=== PATIENT | male | born 1980 | race Caucasian/White ===

== ENCOUNTER 2017-08-08 05:19 | Emergency (ER) | payer BC, OTHER ==
[~2017-08-08] VITALS: Ht 175.3 cm; Wt 107.4 kg
[~2017-08-08 05:19] MED LIST: CRS5 PO; ESCI1TAB10 PO; HYDR25TA5 PO; IBUP-103 PO; LSN20 PO
[2017-08-08 05:23] VITALS: TEMP 37; Ht 175.3 cm; Wt 107.4 kg
[2017-08-08] MEDS ORDERED: OXYCODONE HCL IR 5 MG TAB (IMMEDIATE RELEASE) PO STA (06:16)
[2017-08-08] MEDS ORDERED: OXYC1TAB3 PO (06:23)
[2017-08-08] MEDS ORDERED: INDO-22 PO (06:23)
--- NOTE | 2017-08-08 06:23 | EMERGENCY ROOM VISIT NOTE ---
History Report prepared by Minaibbria: Patric Roy Under the Supervision of: Dr. Juan Harrington M.D. First contact with patient: 05:26 Chief Complaint: ANKLE PAIN Stated Complaint: SEVERE PAIN IN LEFT ANKLE,POSSIBLE SWELLING History of Present Illness The patient is a 36 year old male who presents to the Emergency Room with complaints of constant left ankle pain beginning two days ago. He feels that his left ankle might be swollen as well. He states that his pain began after he was sitting on hit foot, and it had fallen asleep. 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 He denies any shortness of breath, fevers, or chills. Source of History: patient Onset: Two days ago Position: ankle (left) Quality: other (pain and swelling) Timing: constant Associated Symptoms: No fevers, No chills Review of Systems See HPI for pertinent positives & negatives. A total of 6 systems reviewed and were otherwise negative. Past Medical & Surgical Medical Problems: (1) H/O Meckel's diverticulum (2) HLD (hyperlipidemia) (3) HTN (hypertension) (4) Obesity (5) Syncope Surgical Problems: (1) H/O hernia repair (2) S/P appendectomy (3) S/P tonsillectomy Family History Patient reports no known family medical history. Social History Smoking Status: Current Every Day Smoker Marital Status: Housing Status: lives with significant other Current/Historical Medications Scheduled Escitalopram Oxalate (Lexapro), 20 MG PO QAM Hydrochlorothiazide (Hydrochlorothiazide), 25 MG PO QAM Indomethacin (Indocin), 25-50 MG PO TID Lisinopril (Lisinopril), 20 MG PO QAM Scheduled PRN Oxycodone Immediate Rel Tab (Roxicodone Ir), 1-2 TAB PO Q4H PRN for Severe Pain Trazodone Hcl (Trazodone), 50 MG PO HS PRN for Sleep Allergies Coded Allergies: Amoxicillin (Verified Allergy, Unknown, unknown, 08/08/17) Erythromycin (Verified Allergy, Unknown, VOMITING, 08/08/17) Penicillins (Verified Allergy, Unknown, HIVES, 08/08/17) Physical Exam Vital Signs Date Time Temp Pulse Resp B/P (MAP) Pulse Ox O2 Delivery O2 Flow Rate FiO2 08/08/17 05:23 37.0 119 18 131/77 95 Room Air Physical Exam GENERAL: Patient is uncomfortable appearing and in no acute distress. HEENT: No acute trauma, normocephalic atraumatic, mucous membranes moist, no nasal congestion, no scleral icterus. NECK: No stridor, no adenopathy, no meningismus, trachea is midline. HEART: Regular rate and rhythm. No murmurs, rubs, gallops appreciated. EXTREMITIES: Tenderness with palpation of the anterior left ankle over the joint space. No significant swelling or erythema. Pain with active ROM of the left ankle. NEUROLOGIC: Alert and oriented, no acute motor or sensory deficits, no focal weakness, cranial nerves grossly intact. SKIN: No rash, no jaundice, no diaphoresis. Medical Decision & Procedures ER Provider Diagnostic Interpretation: Three View Left Ankle X-ray interpreted by me: slight ankle joint effusion. No fracture or dislocation. Medications Administered Medications (Trade) Dose Ordered Sig/Tayo Route Start Time Stop Time Status Last Admin Dose Admin Oxycodone HCl (Roxicodone Immediate Rel Tab) 10 mg NOW STAT PO 08/08/17 06:16 08/08/17 06:19 DC 08/08/17 06:30 10 MG Indomethacin (Indocin Cap) 50 mg NOW ONCE PO 08/08/17 06:30 08/08/17 06:31 DC 08/08/17 06:30 50 MG ED Course 0527: The patient was evaluated in room B11B. A complete history and physical exam was performed. 0615: Reevaluated the patient. Discussed results and discharge instructions: he verbalized understanding and agreement. The patient is ready for discharge. Medical Decision Differential: Fracture, Dislocation, Cellulitis, Septic Joint, Ligamentous Injury, Effusion, DVT, amongst other pathologies entertained. 36 yr old male arrives with left ankle pain without injury. TTP over joint without significant swelling, erythema, nor increased warmth. N/V intact. History of gout on other side which responded to indomethacin which seems reasonable to treat this as imaging without fracture. Will add on Oxy IR for further symptom relief and reviewed symptoms requiring RTED, specifically going over findings that would suggest septic joint. [place] Drug Monitoring Program Search Results: patient reviewed within database, no issues identified, see additional documentation Drug Monitoring Findings: One narcotic prescription several months ago. Medication Reconcilliation Current Medication List: was personally reviewed by me Blood Pressure Screening Patient's blood pressure: Elevated blood pressure Blood pressure disposition: Elevated BP felt to be situational Impression Primary Impression: Acute gout of left ankle Scribe Attestation The scribe's documentation has been prepared under my direction and personally reviewed by me in its entirety. I confirm that the note above accurately reflects all work, treatment, procedures, and medical decision making performed by me. Departure Information Dispostion Home / Self-Care Prescriptions Oxycodone Immediate Rel Tab (ROXICODONE IR) 5 Mg Tab 1-2 TAB PO Q4H Y for Severe Pain, #20 TAB Prov: Juan Harrington M.D. 08/08/17 Indomethacin (Indocin) 25 Mg Cap 25-50 MG PO TID, #20 CAP Take up to two tabs three times a day and cut back as possible to avoid stomach irritation. Prov: Juan Harrington M.D. 08/08/17 Referrals Mayco Noel M.D. (PCP) Patient Instructions Gout Attack Tx, My [facility] Additional Instructions You have received a narcotic pain medication prescription. These medications may cause drowsiness and should not be used with other sedative medications. Do not drive, drink alcohol, perform dangerous activities, nor make important decisions after taking these medications. halfway use or inappropriate use may lead to addiction. Problem Qualifiers Primary Impression: Acute gout of left ankle Gout etiology: idiopathic Qualified Codes: M10.072 - Idiopathic gout, left ankle and foot
[2017-08-08] MEDS ORDERED: INDOMETHACIN 25 MG CAP PO ONE (06:30)
[2017-08-08] MEDS ORDERED: TRAZ50TA35 PO (06:31)
[2017-08-08 06:39] VITALS: BP 132/84; PULSE 78; O2SAT 98
--- NOTE | 2017-08-08 07:55 | DIAGNOSTIC IMAGING REPORT ---
LEFT ANKLE 3 VIEWS HISTORY: left ankle pain COMPARISON: None. FINDINGS: There is no fracture or dislocation. Mild soft tissue swelling. No radiopaque foreign bodies. IMPRESSION: No fractures. Electronically signed by: Rajiv Spencer M.D. 08/08/2017 7:54 AM Dictated Date/Time: 08/08/2017 7:53 AM
== END 2017-08-08 06:40 | disposition home or self-care (01) ==
LOC: C.EDB 05:20
DX: M10.072 Idiopathic gout, left ankle and foot (principal); E78.5 Hyperlipidemia, unspecified; I10 Essential (primary) hypertension; F17.200 Nicotine dependence, unspecified, uncomplicated